=== PATIENT | male | born 1960 | race Caucasian/White ===

== ENCOUNTER 2017-08-16 15:55 | Inpatient (IN) | payer OTHER ==
[~2017-08-16] VITALS: Ht 182.9 cm; Wt 83.9 kg
[2017-08-16] MEDS ORDERED: MAGNESIUM HYDROXIDE 30 ML LIQUID UDC PO PRN (17:00)
[2017-08-16] MEDS ORDERED: LORAZEPAM 2 MG/1 ML VIAL IM PRN (17:00)
[2017-08-16] MEDS ORDERED: THIAMINE HCL 200 MG/2 ML VIAL IM ONE (17:00)
[2017-08-16] MEDS ORDERED: LOPERAMIDE HCL 2 MG CAPSULE PO PRN ×2 (17:00)
[2017-08-16] MEDS ORDERED: MIRALAX 17 GM POWD.PACK PO PRN (17:00)
[2017-08-16] MEDS ORDERED: hydrALAZINE HCL 50 MG TABLET PO PRN (17:30)
[2017-08-16] MEDS ORDERED: NICOTINE 14 MG/24HR PATCH TD PRN (17:30)
[2017-08-16] MEDS ORDERED: NICOTINE POLACRILEX 4 MG GUM-PK OF TEN BC PRN (17:30)
[2017-08-16 17:45] LABS: *BILIRUBIN,URIN NEGATIVE (NEGATIVE); *BLOOD, URINE 1+ (NEGATIVE); *CLARITY,URINE CLEAR (CLEAR); *COLOR,URINE YELLOW (YELLOW); *KETONES,URINE 1+ (NEGATIVE); *PROTEIN,URINE 2+ (NEGATIVE); *UROBILINOGEN,URINE 0.2 E.U./dl (NORMAL); LEUKOCYTE ESTERASE ,URINE NEGATIVE (NEGATIVE); NITRITE, URINE NEGATIVE (NEGATIVE); PH,URINE 5.5 (5.0-8.0); UGLUCOSE NEGATIVE (NEGATIVE)
[2017-08-16] MEDS ORDERED: LOSA50TA21 PO (17:45)
[2017-08-16] MEDS ORDERED: ASPI81TA31 PO (17:45)
[2017-08-16] MEDS ORDERED: ATOR40TA PO (17:45)
[2017-08-16] MEDS ORDERED: METO25TA6 PO (17:45)
[2017-08-16] MEDS ORDERED: TRAZ-144 PO (17:45)
[2017-08-16 17:56] LABS: BACTERIA,URINE NONE SEEN /HPF (NONE SEEN); RBC,URINE 0-3 /HPF (0-3); SQUAMOUS EPITHELIAL CELL,UR FEW /HPF (NONE SEEN); WBC,URINE 0-3 /HPF (0-3)
[2017-08-16 18:12] LABS: *AMPHETAMINE, URINE NEGATIVE (NEGATIVE); *BARBITURATE, URINE NEGATIVE (NEGATIVE); *CANNABINOID, URINE NEGATIVE (NEGATIVE); *COCCAINE, URINE NEGATIVE (NEGATIVE); *OPIATE, URINE NEGATIVE (NEGATIVE); *PHENCYCLIDINE SCREEN,URINE NEGATIVE (NEGATIVE)
[2017-08-16 18:28] LABS: BASOPHILS # (AUTO) 0.1 K/uL (0.0-8.0); BASOPHILS % (AUTO) 1.4 % (0.0-2.0); EOSINOPHILS # (AUTO) 0.1 K/uL (0.0-0.7); EOSINOPHILS % (AUTO) 1.5 % (0.0-7.0); HEMATOCRIT 47.8 % (36.7-47.1); HEMOGLOBIN 16.8 g/dL (12.5-16.3); LYMPHOCYTES # (AUTO) 1.6 K/uL (20.0-40.0); LYMPHOCYTES % (AUTO) 33.1 % (20.5-51.5); MEAN CORPUSCULAR HEMOGLOBIN 33.3 uug (23.8-33.4); MEAN CORPUSCULAR HGB CONC 35 g/dL (32.5-36.3); MEAN CORPUSCULAR VOLUME 94.9 fL (73.0-96.2); MONOCYTES # (AUTO) 0.3 K/uL (2.0-10.0); MONOCYTES % (AUTO) 6.2 % (0.0-11.0); NEUTROPHILS # (AUTO) 2.9 K/uL (1.8-8.9); NEUTROPHILS % (AUTO) 57.8 % (38.5-71.5); PLATELET COUNT (AUTO) 187 K/uL (152-348); RED BLOOD CELL COUNT(AUTO) 5.04 MIL/uL (4.06-5.63); WHITE BLOOD COUNT (AUTO) 4.9 K/uL (3.6-10.2)
[2017-08-16 18:36] LABS: BILIRUBIN,TOTAL 0.7 mg/dL (0.2-1.0); CREATININE 0.8 mg/dL (0.6-1.3); POTASSIUM 3.8 mmol/L (3.5-5.1); TOTAL PROTEIN, SERUM 8.2 g/dL (6.4-8.2)
[2017-08-16] MEDS ORDERED: BUPR-51 PO (18:53)
[2017-08-16 20:00] VITALS: BP 125/82
[2017-08-16] MEDS ORDERED: THIAMINE HCL 100 MG TABLET PO ONE (20:15)
[2017-08-16] MEDS ORDERED: PATIENT MAY USE OWN MED- MD OK PO SCH ×2 (21:00)
[2017-08-16] MEDS: ATORVASTATIN 40 MG TABLET PO SCH (21:08)
[2017-08-16] MEDS: IBUPROFEN 400 MG TABLET PO PRN (21:08)
[2017-08-16] MEDS: METOPROLOL TARTRATE 25 MG TABLET PO SCH (21:09)
[2017-08-16] MEDS: LORAZEPAM 1 MG TABLET PO PRN (21:40)
[2017-08-17] VITALS: BP 127/78
[2017-08-17] MEDS: MAG HYDROX/AL HYDROX/SIMETH 30 ML LIQUID UDC PO PRN ×3 (01:38→21:24)
[2017-08-17] MEDS: LORAZEPAM 1 MG TABLET PO PRN ×3 (01:39→10:59)
[2017-08-17] MEDS: ONDANSETRON ODT 4 MG TAB.RAPDIS SL PRN ×2 (01:40→20:27)
[2017-08-17 04:00] VITALS: BP 126/84
[2017-08-17] MEDS: ACETAMINOPHEN 325 MG TABLET PO PRN (06:17)
[2017-08-17] MEDS: IBUPROFEN 400 MG TABLET PO PRN ×2 (06:17→20:27)
[2017-08-17 08:45] VITALS: BP 122/78
[2017-08-17] MEDS ORDERED: PATIENT MAY USE OWN MED- MD OK PO SCH ×2 (09:00)
[2017-08-17] MEDS ORDERED: TUBERCULIN,PURIF.PROT.DERIV. 5 TU/0.1 ML TEST ID ONE (09:00)
[2017-08-17] MEDS ORDERED: PNEUMOCOCCAL 23-VAL P-SAC VAC 0.5 ML VIAL IM ONE (09:00)
[2017-08-17] MEDS: ASPIRIN 81 MG TAB.CHEW PO SCH (09:11)
[2017-08-17] MEDS: LOSARTAN POTASSIUM 50 MG TABLET PO SCH (09:12)
[2017-08-17] MEDS: THIAMINE HCL 100 MG TABLET PO SCH (09:12)
[2017-08-17] MEDS: METOPROLOL TARTRATE 25 MG TABLET PO SCH ×2 (09:12→20:27)
[2017-08-17] MEDS: FOLIC ACID 1 MG TABLET PO SCH (09:12)
[2017-08-17] MEDS: LORAZEPAM 1 MG TABLET PO SCH ×4 (09:12→20:27)
[2017-08-17] MEDS: MULTIVITAMINS,THERAPEUTIC TABLET PO SCH (09:13)
[2017-08-17 12:44] VITALS: BP 139/90
[2017-08-17 16:30] VITALS: BP 133/79
[2017-08-17 20:00] VITALS: BP 145/101
[2017-08-17] MEDS: ATORVASTATIN 40 MG TABLET PO SCH (20:27)
[2017-08-18] VITALS: BP 134/83
[2017-08-18 04:00] VITALS: BP 131/76
[2017-08-18] MEDS: MAG HYDROX/AL HYDROX/SIMETH 30 ML LIQUID UDC PO PRN ×3 (04:52→20:32)
[2017-08-18 06:07] LABS: HEPATITIS B SURFACE AG Negative (Negative)
[2017-08-18 08:00] VITALS: BP 112/82
[2017-08-18] MEDS: MULTIVITAMINS,THERAPEUTIC TABLET PO SCH (08:41)
[2017-08-18] MEDS: ONDANSETRON ODT 4 MG TAB.RAPDIS SL PRN (08:41)
[2017-08-18] MEDS: LOSARTAN POTASSIUM 50 MG TABLET PO SCH (08:42)
[2017-08-18] MEDS: ASPIRIN 81 MG TAB.CHEW PO SCH (08:42)
[2017-08-18] MEDS: IBUPROFEN 400 MG TABLET PO PRN ×3 (08:42→20:32)
[2017-08-18] MEDS: FOLIC ACID 1 MG TABLET PO SCH (08:42)
[2017-08-18] MEDS: THIAMINE HCL 100 MG TABLET PO SCH (08:42)
[2017-08-18] MEDS: METOPROLOL TARTRATE 25 MG TABLET PO SCH ×2 (08:42→20:32)
[2017-08-18] MEDS: LORAZEPAM 1 MG TABLET PO SCH ×3 (08:43→20:31)
[2017-08-18 12:00] VITALS: BP 115/79
[2017-08-18] MEDS: LORAZEPAM 1 MG TABLET PO PRN ×2 (12:14→17:11)
[2017-08-18] MEDS: IV D5 1/2 NS 1000 ML 1,000 ML IV PRN (12:38)
[2017-08-18] MEDS: ONDANSETRON 4 MG/2 ML VIAL IM PRN ×2 (14:02→20:32)
[2017-08-18 16:00] VITALS: BP 135/85
[2017-08-18] MEDS: ACETAMINOPHEN 325 MG TABLET PO PRN (17:10)
[2017-08-18 20:00] VITALS: BP 135/92
[2017-08-18] MEDS: GABAPENTIN 300 MG CAPSULE PO SCH (20:31)
[2017-08-18] MEDS: ATORVASTATIN 40 MG TABLET PO SCH (20:32)
[2017-08-19] VITALS: BP 129/84
[2017-08-19] MEDS: IV D5 1/2 NS 1000 ML 1,000 ML IV PRN ×2 (00:21→08:26)
[2017-08-19] MEDS: ACETAMINOPHEN 325 MG TABLET PO PRN ×3 (00:24→20:55)
[2017-08-19] MEDS: LORAZEPAM 1 MG TABLET PO PRN ×2 (00:27→14:35)
[2017-08-19] MEDS: MAG HYDROX/AL HYDROX/SIMETH 30 ML LIQUID UDC PO PRN (00:32)
[2017-08-19 04:00] VITALS: BP 122/79
[2017-08-19] MEDS: IBUPROFEN 400 MG TABLET PO PRN ×4 (04:00→16:36)
[2017-08-19 08:00] VITALS: BP 123/86
[2017-08-19] MEDS: FOLIC ACID 1 MG TABLET PO SCH (08:14)
[2017-08-19] MEDS: ASPIRIN 81 MG TAB.CHEW PO SCH (08:14)
[2017-08-19] MEDS: MULTIVITAMINS,THERAPEUTIC TABLET PO SCH (08:14)
[2017-08-19] MEDS: GABAPENTIN 300 MG CAPSULE PO SCH ×3 (08:15→20:45)
[2017-08-19] MEDS: METOPROLOL TARTRATE 25 MG TABLET PO SCH ×2 (08:15→20:46)
[2017-08-19] MEDS: THIAMINE HCL 100 MG TABLET PO SCH (08:15)
[2017-08-19] MEDS: LOSARTAN POTASSIUM 50 MG TABLET PO SCH (08:16)
[2017-08-19] MEDS: ONDANSETRON ODT 4 MG TAB.RAPDIS SL PRN ×3 (08:16→20:55)
[2017-08-19] MEDS ORDERED: LORAZEPAM 1 MG TABLET PO SCH ×2 (09:00→21:00)
[2017-08-19 11:07] LABS: *GC NAA Negative (Negative); *TRIC.VAG. NAA Negative (Negative)
[2017-08-19 12:00] VITALS: BP 131/84
[2017-08-19] MEDS ORDERED: IV D5 1/2 NS 1000 ML 1,000 ML IV PRN (12:00)
[2017-08-19] MEDS ORDERED: BENZOCAINE/MENTH/CETYLPYRD LOZENGE MM PRN (12:00)
[2017-08-19] MEDS ORDERED: LORAZEPAM 1 MG TABLET PO PRN (12:15)
[2017-08-19] MEDS: FAMOTIDINE 20 MG TABLET PO SCH (12:21)
[2017-08-19] MEDS: LORAZEPAM 1 MG TABLET PO SCH ×2 (12:21→16:36)
[2017-08-19 16:00] VITALS: BP 134/90
[2017-08-19 20:00] VITALS: BP 140/77
[2017-08-19] MEDS: ATORVASTATIN 40 MG TABLET PO SCH (20:45)
[2017-08-20] MEDS: MAG HYDROX/AL HYDROX/SIMETH 30 ML LIQUID UDC PO PRN (03:11)
[2017-08-20] MEDS: LORAZEPAM 1 MG TABLET PO PRN (03:22)
[2017-08-20] MEDS: IBUPROFEN 400 MG TABLET PO PRN ×3 (03:22→20:44)
[2017-08-20 04:00] VITALS: BP 120/84
[2017-08-20] MEDS: FAMOTIDINE 20 MG TABLET PO SCH (08:19)
[2017-08-20] MEDS: GABAPENTIN 300 MG CAPSULE PO SCH ×3 (08:19→20:43)
[2017-08-20] MEDS: THIAMINE HCL 100 MG TABLET PO SCH (08:20)
[2017-08-20] MEDS: FOLIC ACID 1 MG TABLET PO SCH (08:20)
[2017-08-20] MEDS: LOSARTAN POTASSIUM 50 MG TABLET PO SCH (08:20)
[2017-08-20] MEDS: ACETAMINOPHEN 325 MG TABLET PO PRN (08:20)
[2017-08-20] MEDS: ASPIRIN 81 MG TAB.CHEW PO SCH (08:20)
[2017-08-20] MEDS: METOPROLOL TARTRATE 25 MG TABLET PO SCH ×2 (08:20→20:44)
[2017-08-20] MEDS: MULTIVITAMINS,THERAPEUTIC TABLET PO SCH (08:20)
[2017-08-20 08:42] VITALS: BP 119/78
[2017-08-20] MEDS ORDERED: LORAZEPAM 1 MG TABLET PO SCH ×3 (09:00→21:00)
[2017-08-20 12:59] VITALS: BP 142/87
[2017-08-20 17:29] VITALS: BP 143/88
[2017-08-20 20:00] VITALS: BP 125/84
[2017-08-20] MEDS: ATORVASTATIN 40 MG TABLET PO SCH (20:44)
[2017-08-21] VITALS: BP 118/84
[2017-08-21 04:00] VITALS: BP 120/83
[2017-08-21] MEDS ORDERED: LORAZEPAM 1 MG TABLET PO ONE (04:30)
[2017-08-21] MEDS: ACETAMINOPHEN 325 MG TABLET PO PRN ×2 (04:43→14:40)
[2017-08-21 08:50] VITALS: BP 108/74
[2017-08-21] MEDS ORDERED: LORAZEPAM 1 MG TABLET PO SCH (09:00)
[2017-08-21] MEDS: FAMOTIDINE 20 MG TABLET PO SCH (09:02)
[2017-08-21] MEDS: FOLIC ACID 1 MG TABLET PO SCH (09:02)
[2017-08-21] MEDS: IBUPROFEN 400 MG TABLET PO PRN ×2 (09:02→14:40)
[2017-08-21] MEDS: GABAPENTIN 300 MG CAPSULE PO SCH ×3 (09:02→21:10)
[2017-08-21] MEDS: MULTIVITAMINS,THERAPEUTIC TABLET PO SCH (09:02)
[2017-08-21] MEDS: ASPIRIN 81 MG TAB.CHEW PO SCH (09:03)
[2017-08-21] MEDS: THIAMINE HCL 100 MG TABLET PO SCH (09:03)
[2017-08-21] MEDS: METOPROLOL TARTRATE 25 MG TABLET PO SCH ×2 (09:04→21:09)
[2017-08-21] MEDS: LOSARTAN POTASSIUM 50 MG TABLET PO SCH (09:04)
[2017-08-21] MEDS: LORAZEPAM 1 MG TABLET PO SCH ×3 (09:04→21:09)
[2017-08-21 12:00] VITALS: BP 130/85
[2017-08-21 16:00] VITALS: BP 120/84
[2017-08-21] MEDS: NEOMY/BACITRAC/POLYMI OINT 28.35 GM TUBE TOP SCH (16:34)
[2017-08-21] MEDS ORDERED: IBUPROFEN 800 MG TABLET PO PRN (17:00)
[2017-08-21] MEDS ORDERED: METO25TA6 PO (19:21)
[2017-08-21] MEDS ORDERED: GABA-534 PO ×2 (19:21)
[2017-08-21] MEDS ORDERED: LOSA50TA3 PO (19:21)
[2017-08-21] MEDS ORDERED: IBUP-1957 PO (19:21)
[2017-08-21] MEDS ORDERED: DIPH50CA37 PO (19:21)
[2017-08-21] MEDS ORDERED: ATOR40TA PO (19:21)
[2017-08-21] MEDS ORDERED: FAMO20TA8 PO (19:21)
[2017-08-21] MEDS ORDERED: ASPI81TA31 PO (19:21)
[2017-08-21 20:00] VITALS: BP 134/88
[2017-08-21] MEDS: ATORVASTATIN 40 MG TABLET PO SCH (21:08)
[2017-08-21] MEDS: ASPIRIN/ACETAMINOPHEN/CAFFEINE TABLET PO PRN (21:10)
[2017-08-21] MEDS: diphenhydrAMINE 50 MG CAPSULE PO PRN (21:10)
[2017-08-22] MEDS: ASPIRIN/ACETAMINOPHEN/CAFFEINE TABLET PO PRN ×3 (03:40→20:13)
[2017-08-22 03:45] VITALS: BP 118/80
[2017-08-22 08:00] VITALS: BP 116/79
[2017-08-22] MEDS: FAMOTIDINE 20 MG TABLET PO SCH (08:51)
[2017-08-22] MEDS: MULTIVITAMINS,THERAPEUTIC TABLET PO SCH (08:51)
[2017-08-22] MEDS: ASPIRIN 81 MG TAB.CHEW PO SCH (08:51)
[2017-08-22] MEDS: METOPROLOL TARTRATE 25 MG TABLET PO SCH ×2 (08:51→20:14)
[2017-08-22] MEDS: GABAPENTIN 300 MG CAPSULE PO SCH ×3 (08:51→20:14)
[2017-08-22] MEDS: LOSARTAN POTASSIUM 50 MG TABLET PO SCH (08:52)
[2017-08-22] MEDS: FOLIC ACID 1 MG TABLET PO SCH (08:52)
[2017-08-22] MEDS: THIAMINE HCL 100 MG TABLET PO SCH (08:52)
[2017-08-22] MEDS: NEOMY/BACITRAC/POLYMI OINT 28.35 GM TUBE TOP SCH ×2 (08:53→17:02)
[2017-08-22] MEDS ORDERED: LORAZEPAM 1 MG TABLET PO SCH (09:00)
[2017-08-22 12:00] VITALS: BP 118/71
[2017-08-22 16:00] VITALS: BP 120/82
[2017-08-22 20:00] VITALS: BP 137/77
[2017-08-22] MEDS: ATORVASTATIN 40 MG TABLET PO SCH (20:14)
[2017-08-23] VITALS: BP 116/80
[2017-08-23] MEDS: diphenhydrAMINE 50 MG CAPSULE PO PRN (00:50)
[2017-08-23] MEDS: ACETAMINOPHEN 325 MG TABLET PO PRN ×2 (00:50→08:25)
[2017-08-23 04:00] VITALS: BP 118/78
[2017-08-23 08:00] VITALS: BP 103/78
[2017-08-23] MEDS: LOSARTAN POTASSIUM 50 MG TABLET PO SCH (08:25)
[2017-08-23] MEDS: FAMOTIDINE 20 MG TABLET PO SCH (08:25)
[2017-08-23 08:26] VITALS: BP 103/78
[2017-08-23] MEDS: GABAPENTIN 300 MG CAPSULE PO SCH (08:26)
[2017-08-23] MEDS: THIAMINE HCL 100 MG TABLET PO SCH (08:26)
[2017-08-23] MEDS: METOPROLOL TARTRATE 25 MG TABLET PO SCH (08:26)
[2017-08-23] MEDS: FOLIC ACID 1 MG TABLET PO SCH (08:26)
[2017-08-23] MEDS: MULTIVITAMINS,THERAPEUTIC TABLET PO SCH (08:26)
[2017-08-23] MEDS: NEOMY/BACITRAC/POLYMI OINT 28.35 GM TUBE TOP SCH (08:26)
[2017-08-23] MEDS: ASPIRIN 81 MG TAB.CHEW PO SCH (08:26)
== END 2017-08-23 09:33 | disposition other institution (70) | DRG 895 ==
LOC: SRC 15:55
PROVIDERS: ADMIT Internal Medicine; ATTEND Internal Medicine
PROC: HZ2ZZZZ Detoxification Services for Substance Abuse Treatment (ICD-10-PCS; principal; 2017-08-16)
PROC: HZ31ZZZ Individual Counseling for Substance Abuse Treatment, Behavioral (ICD-10-PCS; 2017-08-19)
PROC: HZ41ZZZ Group Counseling for Substance Abuse Treatment, Behavioral (ICD-10-PCS; 2017-08-22)
DX: F10.232 Alcohol dependence with withdrawal with perceptual disturbance (principal); I15.9 Secondary hypertension, unspecified; E78.5 Hyperlipidemia, unspecified; F17.210 Nicotine dependence, cigarettes, uncomplicated; Y90.8 Blood alcohol level of 240 mg/100 ml or more; I25.10 Atherosclerotic heart disease of native coronary artery without angina pectoris; Z95.5 Presence of coronary angioplasty implant and graft; I25.2 Old myocardial infarction; S01.01XD Laceration without foreign body of scalp, subsequent encounter; W01.198D Fall on same level from slipping, tripping and stumbling with subsequent striking against other object, subsequent encounter; E86.0 Dehydration; Z81.1 Family history of alcohol abuse and dependence; J02.9 Acute pharyngitis, unspecified; F13.90 Sedative, hypnotic, or anxiolytic use, unspecified, uncomplicated
CPT/HCPCS: 36415; 70030-TC; 80307; 80346; 83735; 85025; 86403; 86592; 86705; 86803; 87070; 87340; 87400; 87491; 87806; 93005; A4663; A9150; G0480; J2405; J3490; Q0162; Q0163